=== PATIENT | female | born 1965 | race Caucasian/White ===

== ENCOUNTER 2016-12-14 07:38 | Day surgery (SDC) | payer MEDICAID ==
[2016-12-14] MEDS ORDERED: LR 1,000 ML IV ONE (07:54)
--- NOTE | 2016-12-14 08:03 | PDGENHP ---
History & Physical Chief Complaint: Screening colonoscopy Relevant Physical Exam: GEN: NAD. Cardiac: RRR. Lungs: CTA B. Abd: Soft, nt, nd
--- NOTE | 2016-12-14 08:13 | PDANEPAE ---
ANE History of Present Illness presents for screening colonoscopy ANE Past Medical History - Cardiovascular History Hx Hypertension: No Hx Arrhythmias: No Hx Chest Pain: No Hx Coronary Artery / Peripheral Vascular Disease: No Hx CHF / Valvular Disease: No Hx Palpitations: No - Pulmonary History Hx COPD: No Hx Asthma/Reactive Airway Disease: No Hx Recent Upper Respiratory Infection: No Hx Oxygen in Use at Home: No Hx Sleep Apnea: No Sleep Apnea Screening Result - Last Documented: Negative - Neurologic History Hx Cerebrovascular Accident: No Hx Seizures: No Hx Dementia: No - Endocrine History Hx Diabetes: No Obesity: no - Renal History Hx Renal Disorders: No - Liver History Hx Hepatic Disorders: No - Neurological & Psychiatric Hx Hx Neurological and Psychiatric Disorders: No - Cancer History Hx Cancer: No Cancer History Comment: MELANOMA REMOVED - Congenital Disorder History Hx Congenital Disorders: No - GI History Hx Gastrointestinal Disorders: No - Other Health History Other Health History: NEG - Chronic Pain History Chronic Pain: Yes (BACK PAIN) - Surgical History Prior Surgeries: KNEE SHAWN MENISCUS. BREAST IMPLANTS. STEROID EPID INJS ANE Review of Systems Review of systems is: negative Review of Systems: - Exercise capacity METS (RN): 5 METS ANE Patient History - Allergies Allergies/Adverse Reactions: No Known Allergies Allergy (Unverified 12/06/16 14:22) - Home Medications Home medications: home medication list seen and reviewed Home Medications: Advil 12/06/16 [Last Taken 12/13/16] Aleve 12/06/16 [Last Taken 12/13/16] Gabapentin 12/06/16 [Last Taken 12/13/16] Herbals/Supplements -Info Only 12/06/16 [Last Taken 12/07/16] Tramadol HCl 12/06/16 [Last Taken 12/13/16] Viibryd 12/06/16 [Last Taken 12/14/16] - NPO status NPO Since - Liquids (Date): 12/13/16 NPO Since - Liquids (Time): 09:00 NPO Since - Solids (Date): 12/14/16 NPO Since - Solids (Time): 00:00 - Anes Hx Anes Hx: no prior problems - Smoking Hx Smoking Status: Heavy smoker - Family Anes Hx Family Hx Anesthesia Complications: NEG ANE Labs/Vital Signs - Vital Signs Blood Pressure: 114/68 Heart Rate: 68 Respiratory Rate: 14 O2 Sat (%): 96 Height: 170.18 cm Weight: 56.699 kg ANE Physical Exam - Airway Neck exam: FROM Mallampati Score: Class 1 Mouth exam: normal dental/mouth exam - Pulmonary Pulmonary: no respiratory distress - Cardiovascular Cardiovascular: regular rate and rhythym - ASA Status ASA Status: II ANE Anesthesia Plan Anesthesia Plan: GA with mask
[2016-12-14] MEDS ORDERED: MIDAZOLAM 2 MG/2 ML VIAL ONE (08:23)
[2016-12-14] MEDS ORDERED: PROPOFOL 200 MG/20 ML VIAL ONE (08:24)
[2016-12-14] MEDS ORDERED: ONDANSETRON 4 MG/2 ML VIAL IVP PRN (09:05)
[2016-12-14] MEDS ORDERED: LR 500 ML IV PRN (09:05)
[2016-12-14] MEDS ORDERED: ALBUTEROL 3 ML DEYVIAL IH PRN (09:05)
[2016-12-14] MEDS ORDERED: ACETAMINOPHEN 500 MG TAB PO PRN (09:05)
[2016-12-14] MEDS ORDERED: NALOXONE HCL 0.4 MG/ML INJ IVP PRN (09:05)
[2016-12-14] MEDS ORDERED: OXYCODONE/APAP 5/325 TAB PO PRN (09:05)
--- NOTE | 2016-12-14 09:07 | POSTANESTH ---
Post Anesthetic Evaluation Cardiovascular Status: Normal, Stable Respiratory Status: Normal, Stable Level of Consciousness/Mental Status: Can Participate in Eval Pain Control: Adequate, Prn Tx Ordered Nausea/Vomiting Control: Adequate, Prn Tx Ordered Complications Possibly Related to Anesthesia: None Noted
--- NOTE | 2016-12-14 09:30 | GIREPORT ---
[facility] - Endoscopy Department Patient Name: Dipti Wellington Procedure Date: 12/14/2016 8:56 AM Patient Type: Outpatient Attending / OMAR Physician: Santos Casanova MD Procedure: Colonoscopy Indications: Screening for colorectal malignant neoplasm Providers: Santos Casanova MD Medicines: Monitored Anesthesia Care Complications: No immediate complications. Description of Procedure: After obtaining informed consent, the scope was passed under direct vis ion. Throughout the procedure, the patient's blood pressure, pulse, and oxyg en saturations were monitored continuously. The Colonoscope with irrigatio n channel was introduced through the anus and advanced to the terminal il eum, with identification of the appendiceal orifice and IC valve. The colono scopy was performed without difficulty. The patient tolerated the procedure w ell. The quality of the bowel preparation was good. Findings: The perianal and digital rectal examinations were normal. The terminal ileum appeared normal. The colon (entire examined portion) appeared normal. The retroflexed view of the distal rectum and anal verge was normal and showed no anal or rectal abnormalities. Estimated Blood Loss: Estimated blood loss: none. Post Op Diagnosis: - The examined portion of the ileum was normal. - The entire examined colon is normal. - The distal rectum and anal verge are normal on retroflexion view. - No specimens collected. Recommendation: - Discharge patient to home (with escort). - Resume previous diet. - Continue present medications. - Repeat colonoscopy in 10 years for screening purposes. - Thank you for allowing me to participate in the care of your patient. Attending Participation: I personally performed the entire procedure. Santos Casanova MD Santos Casanova MD 12/14/2016 9:30:18 AM Number of Addenda: 0 Note Initiated On: 12/14/2016 8:56 AM Total Procedure Duration Time 0 hours 19 minutes 0 seconds [email or web address]
[2016-12-14 10:30] VITALS: O2SAT 98
[2016-12-14 10:43] VITALS: BP 94/69; PULSE 68; TEMP 97.5
[2016-12-14 10:44] VITALS: RESP 18
== END 2016-12-14 10:56 | disposition home or self-care (01) ==
LOC: FSGY 07:38
PROVIDERS: ATTEND Internal Medicine Gastroenterology
PROC: 0DJD8ZZ Inspection of Lower Intestinal Tract, Via Natural or Artificial Opening Endoscopic (ICD-10-PCS; principal; 2016-12-14 09:00)
DX: Z12.11 Encounter for screening for malignant neoplasm of colon (principal)
CPT/HCPCS: J2250; J2704

== ENCOUNTER → 2017-01-19 | Outpatient (CLI) | payer MEDICAID | LOC: FIMAGING 14:01 | PROVIDERS: ATTEND Family Medicine | DX: Z12.31 Encounter for screening mammogram for malignant neoplasm of breast (principal); Z80.3 Family history of malignant neoplasm of breast | CPT/HCPCS: G0202 ==